=== PATIENT | male | born 1970 ===

== ENCOUNTER 2017-08-05 23:47 | Emergency (ER) | payer SELFPAY ==
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
[2017-08-06 02:11] LABS: HEMOGLOBIN 15.3 g/dL (14.0-18.0); MEAN CORPUSCULAR HEMOGLOBIN 29.4 pg (25.0-35.0); MEAN CORPUSCULAR HGB CONC 34.2 g/dl (31.0-37.0); MEAN PLATELET VOLUME 10.7 fl (7.0-11.0); RBC 5.21 10^6/uL (3.5-6.1); RED CELL DISTRIBUTION WIDTH 13.2 % (11.5-14.5); URINE BILIRUBIN NEGATIVE (NEGATIVE); URINE BLOOD NEGATIVE (NEGATIVE); URINE GLUCOSE (UA) NEGATIVE (NEGATIVE); URINE LEUKOCYTE ESTERASE NEGATIVE Leu/uL (NEGATIVE); URINE NITRATE NEGATIVE (NEGATIVE); URINE PROTEIN NEGATIVE mg/dL (<30 mg/dL); URINE UROBILINOGEN 0.2 E.U./dL (<1 E.U./dL); WHITE BLOOD COUNT 7.2 10^3/ul (4.5-11.0)
[2017-08-06 02:21] LABS: ALB/GLOB RATIO 1.4 (1.1-1.8); ALBUMIN 4.5 g/dL (3.0-4.8); ALT/SGPT 33 U/L (7-56); AST/SGOT 32 U/L (17-59); BLOOD UREA NITROGEN 16 mg/dL (7-21); CALCIUM 9.8 mg/dL (8.4-10.5); GFR AFRICAN-AMERICAN > 60; GFR NON-AFRICAN AMERICAN > 60; URINE APPEARANCE CLEAR (CLEAR); URINE COLOR YELLOW (YELLOW)
[2017-08-06 02:31] LABS: BARBITURATES, UR NEGATIVE (NEGATIVE); BENZODIAZEPINES, UR NEGATIVE (NEGATIVE); OPIATES, UR NEGATIVE (NEGATIVE); PHENCYCLIDINE, UR NEGATIVE (NEGATIVE)
[2017-08-06 02:33] VITALS: RESP 16
[2017-08-06 07:39] VITALS: BP 106/63; PULSE 98; TEMP 97.9; O2SAT 97
--- NOTE | 2017-08-06 09:35 | RAD ---
HISTORY: medical clearance COMPARISON: No prior. FINDINGS: LUNGS: The lungs are well inflated and clear. PLEURA: No significant pleural effusion identified, no pneumothorax apparent. CARDIOVASCULAR: Normal. OSSEOUS STRUCTURES: No significant abnormalities. VISUALIZED UPPER ABDOMEN: Normal. OTHER FINDINGS: None. IMPRESSION: No active pulmonary disease.
--- NOTE | 2017-08-06 09:41 | CARD ---
APPROVED REPORT EKG Measurement Heart [id number] <Conclusion> Sinus tachycardia Possible Left atrial enlargement T wave abnormality, consider anterolateral ischemia
== END 2017-08-06 08:40 | disposition short-term general hospital (02) ==
LOC: ED 23:47
DX: F20.9 Schizophrenia, unspecified (principal)
CPT/HCPCS: 71045; 80053; 81003; 85027; 90791; 93005; 99283; G0480

== ENCOUNTER 2017-08-29 20:28 | Emergency (ER) | payer SELFPAY ==
[2017-08-29 20:31] VITALS: BMI 33.4
[2017-08-29 20:43] VITALS: TEMP 97.9
--- NOTE | 2017-08-29 21:16 | ED PDOC ---
Arrival/HPI - General Chief Complaint: Anxiety Time Seen by Provider: 08/29/17 20:29 Historian: Patient - History of Present Illness Narrative History of Present Illness (Text): 08/29/17 21:15 Salvador Menchaca is a 47 year old male, whose past medical history includes schizophrenia, who presents to the Emergency department complaining of anxiety. Patient states he has been feeling anxious tonight and notes he has been experiencing visual hallucinations. Patient denies any suicidal ideation and homicidal ideation. Patient also complaining of a frontal headache. Patient denies any fever, chills, chest pain, shortness of breath, nausea, vomiting, diarrhea, urinary symptoms, back pain, neck pain, dizziness, or any other complaints. Symptom Onset: Gradual Symptom Course: Unchanged Activities at Onset: Light Context: Home Past Medical History - Provider Review Nursing Documentation Reviewed: Yes - Infectious Disease Hx of Infectious Diseases: None - Tetanus Immunization Tetanus Immunization: Unknown - Cardiac Hx Cardiac Disorders: No Hx Hypertension: No - Pulmonary Hx Respiratory Disorders: No Hx Tuberculosis: No - Neurological Hx Neurological Disorder: No Hx Seizures: No - HEENT Hx HEENT Disorder: No - Renal Hx Renal Disorder: No - Endocrine/Metabolic Hx Endocrine Disorders: No - Hematological/Oncological Hx Blood Disorders: No - Integumentary Hx Dermatological Disorder: No - Musculoskeletal/Rheumatological Hx Musculoskeletal Disorders: No - Gastrointestinal Hx Gastrointestinal Disorders: No - Genitourinary/Gynecological Hx Genitourinary Disorders: No Hx Sexually Transmitted Diseases: No - Psychiatric Hx Psychophysiologic Disorder: Yes Hx Anxiety: Yes Hx Schizophrenia: Yes Hx Substance Use: No - Surgical History Hx Orthopedic Surgery: Yes (left ankle) Family/Social History - Physician Review Nursing Documentation Reviewed: Yes Family/Social History: Unknown Family HX Smoking Status: Never Smoked Hx Alcohol Use: No Hx Substance Use: No Allergies/Home Meds Allergies/Adverse Reactions: Allergies No Known Allergies Allergy (Verified 08/06/17 09:30) Home Medications: Home Meds Medication Instructions Recorded Confirmed Unobtainable 08/29/17 08/29/17 Review of Systems - Physician Review All systems were reviewed & negative as marked: Yes - Review of Systems Constitutional: Normal. absent: Fevers Eyes: Normal ENT: Normal Respiratory: Normal. absent: SOB, Cough Cardiovascular: Normal. absent: Chest Pain Gastrointestinal: Normal. absent: Abdominal Pain, Diarrhea, Nausea, Vomiting Genitourinary Male: Normal. absent: Dysuria, Frequency, Hematuria, Urinary Output Changes Musculoskeletal: Normal. absent: Back Pain, Neck Pain Skin: Normal. absent: Rash Neurological: Headache. absent: Dizziness Endocrine: Normal Hemo/Lymphatic: Normal Psychiatric: Anxiety, Other (+visual hallucinations) Physical Exam Vital Signs Reviewed: Yes Vital Signs Temp Pulse Resp BP Pulse Ox 08/30/17 01:08 63 16 100/63 95 08/29/17 23:34 71 16 99/61 L 97 08/29/17 20:36 97.9 F 104 H 22 128/82 97 Temperature: Afebrile Blood Pressure: Normal Pulse: Regular Respiratory Rate: Normal Appearance: Positive for: Well-Appearing, Non-Toxic, Comfortable Pain Distress: None Mental Status: Positive for: Alert and Oriented X 3 - Systems Exam Head: Present: Atraumatic, Normocephalic Pupils: Present: PERRL Extroacular Muscles: Present: EOMI Conjunctiva: Present: Normal Mouth: Present: Moist Mucous Membranes Neck: Present: Normal Range of Motion Respiratory/Chest: Present: Clear to Auscultation, Good Air Exchange. No: Respiratory Distress, Accessory Muscle Use Cardiovascular: Present: Regular Rate and Rhythm, Normal S1, S2. No: Murmurs Abdomen: Present: Normal Bowel Sounds. No: Tenderness, Distention, Peritoneal Signs Back: Present: Normal Inspection Upper Extremity: Present: Normal Inspection. No: Cyanosis, Edema Lower Extremity: Present: Normal Inspection. No: Edema Neurological: Present: GCS=15, CN II-XII Intact, Speech Normal Skin: Present: Warm, Dry, Normal Color. No: Rashes Psychiatric: Present: Alert, Oriented x 3, Normal Insight, Normal Concentration Medical Decision Making ED Course and Treatment: 08/29/17 21:15 Impression: 47 year old male complaining of anxiety and visual hallucinations. Plan: -- CT Head w/o contrast -- EKG -- Chest X-ray -- Labs, alcohol level -- Urinalysis, urine drug screen -- Reassess and disposition Prior Visits: Notes and results from previous visits were reviewed. On 08/06/2017, pt was seen in the Emergency department for anxiety and trasnferred to [facility] ER for psychriatic admission. Progress Notes: 08/29/17 21:54 Reviewed EKG, NSR at 80 bpm. Non-specific T wave changes. 08/29/17 23:58 Reviewed radiology, Chest X-ray shows no acute processes. CT Head shows: Brain: Ventricles are normal in size and configuration. There is no midline shift. There are no intraaxial or extra-axial mass lesions or areas of hemorrhage. There are faint calcifications in the basal ganglia bilaterally. There are no abnormal fluid collections. Valadez-white differentiation is maintained. Bones/joints: Bones: Cranial vault is intact. Soft tissues: unremarkable Sinuses: There is no acute sinusitis. Ears and mastoids: Middle ears are unremarkable. Mastoids are incompletely pneumatized. Orbits: Orbital contents are unremarkable. IMPRESSION: No acute intracranial abnormality 08/30/17 01:30 Pt medically cleared for PES evaluation. 08/30/17 02:51 Pt seen and evaluated by PES melissa Bailey, who discussed case with psychiatrist coordinator of rehabilitation services. Pt psychiatrically cleared for d/c home with outpt f/u. - Lab Interpretations Lab Results: 08/29/17 21:58 08/29/17 21:58 Lab Results 08/29/17 21:58: Urine Opiates Screen Negative, Urine Methadone Screen Negative, Ur Barbiturates Screen Negative, Ur Phencyclidine Scrn Negative, Ur Amphetamines Screen Negative, U Benzodiazepines Scrn Negative, U Oth Cocaine Metabols Negative, U Cannabinoids Screen Negative 08/29/17 21:58: WBC 7.3, RBC 5.00, Hgb 14.7, Hct 43.5, MCV 87.0, MCH 29.4, MCHC 33.8, RDW 13.7, Plt Count 270, MPV 10.6 08/29/17 21:58: Alcohol, Quantitative < 10 08/29/17 21:58: Sodium 142, Potassium 4.1, Chloride 106, Carbon Dioxide 27, Anion Gap 13, BUN 18, Creatinine 0.9, Est GFR ( Amer) > 60, Est GFR (Non- Af Amer) > 60, Random Glucose 123 H, Calcium 9.5, Total Bilirubin 0.3, AST 39, ALT 65 H, Alkaline Phosphatase 88, Total Protein 7.1, Albumin 3.9, Globulin 3.1 , Albumin/Globulin Ratio 1.3 08/29/17 21:45: Urine Color Yellow, Urine Appearance Clear, Urine pH 7.0, Ur Specific [place] 1.010, Urine Protein Trace H, Urine Glucose (UA) Negative, Urine Ketones Negative, Urine Blood Negative, Urine Nitrate Negative, Urine Bilirubin Negative, Urine Urobilinogen 0.2, Ur Leukocyte Esterase Negative, Urine RBC 0 - 2, Urine WBC 0 - 2, Ur Epithelial Cells 0 - 2 I have reviewed the lab results: Yes - RAD Interpretation Radiology Orders: 08/29/17 21:21 HEAD W/O CONTRAST [CT] Stat 08/29/17 21:28 CHEST PORTABLE [RAD] Stat Group Insurance Specialist: ED Physician, Radiologist - EKG Interpretation Interpreted by ED Physician: Yes Type: 12 lead EKG - Scribe Statement The provider has reviewed the documentation as recorded by the Francoise Hartman Provider Scribe Attestation: All medical record entries made by the Scribe were at my direction and personally dictated by me. I have reviewed the chart and agree that the record accurately reflects my personal performance of the history, physical exam, medical decision making, and the department course for this patient. I have also personally directed, reviewed, and agree with the discharge instructions and disposition. Disposition/Present on Arrival - Present on Arrival Any Indicators Present on Arrival: No History of DVT/PE: No History of Uncontrolled Diabetes: No Urinary Catheter: No History of Decub. Ulcer: No History Surgical Site Infection Following: None - Disposition Have Diagnosis and Disposition been Completed?: Yes Diagnosis: Schizophrenia, Anxiety Disposition: HOME/ ROUTINE Disposition Time: 02:58 Patient Plan: Discharge Condition: GOOD Discharge Instructions (ExitCare): Anxiety, Adult (DC), Schizophrenia (DC) Additional Instructions: Follow up outpatient [facility] Forms: [employer] (Malay)
[2017-08-29 22:10] LABS: HEMOGLOBIN 14.7 g/dL (14.0-18.0); MEAN CORPUSCULAR HEMOGLOBIN 29.4 pg (25.0-35.0); MEAN CORPUSCULAR HGB CONC 33.8 g/dl (31.0-37.0); MEAN PLATELET VOLUME 10.6 fl (7.0-11.0); RED CELL DISTRIBUTION WIDTH 13.7 % (11.5-14.5); WHITE BLOOD COUNT 7.3 10^3/ul (4.5-11.0)
[2017-08-29 22:21] LABS: ALB/GLOB RATIO 1.3 (1.1-1.8); ALBUMIN 3.9 g/dL (3.0-4.8); ALT/SGPT 65 U/L (7-56); AST/SGOT 39 U/L (17-59); BLOOD UREA NITROGEN 18 mg/dL (7-21); CALCIUM 9.5 mg/dL (8.4-10.5); GFR AFRICAN-AMERICAN > 60; GFR NON-AFRICAN AMERICAN > 60
[2017-08-29 22:23] LABS: BENZODIAZEPINES, UR NEGATIVE (NEGATIVE)
[2017-08-29 22:36] LABS: BARBITURATES, UR NEGATIVE (NEGATIVE); OPIATES, UR NEGATIVE (NEGATIVE); PHENCYCLIDINE, UR NEGATIVE (NEGATIVE)
--- NOTE | 2017-08-29 23:14 | CT ---
EXAM: CT Head Without Intravenous Contrast EXAM DATE/TIME: 08/29/2017 9:21 PM CLINICAL HISTORY: 47 years old, male; Pain; Headache; Headache not specified TECHNIQUE: Axial computed tomography images of the head/brain without intravenous contrast. All CT scans at this facility use one or more dose reduction techniques, viz.: automated exposure control; ma/kV adjustment per patient size (including targeted exams where dose is matched to indication; i.e. head); or iterative reconstruction technique. Coronal and sagittal reformatted images were created and reviewed. COMPARISON: No relevant prior studies available. FINDINGS: Brain: Ventricles are normal in size and configuration. There is no midline shift. There are no intra-axial or extra-axial mass lesions or areas of hemorrhage. There are faint calcifications in the basal ganglia bilaterally. There are no abnormal fluid collections. Valadez-white differentiation is maintained. Bones/joints: Bones: Cranial vault is intact. Soft tissues: unremarkable Sinuses: There is no acute sinusitis. Ears and mastoids: Middle ears are unremarkable. Mastoids are incompletely pneumatized. Orbits: Orbital contents are unremarkable. IMPRESSION: No acute intracranial abnormality
[2017-08-30 00:05] LABS: URINE APPEARANCE CLEAR (CLEAR); URINE BILIRUBIN NEGATIVE (NEGATIVE); URINE BLOOD NEGATIVE (NEGATIVE); URINE COLOR YELLOW (YELLOW); URINE GLUCOSE (UA) NEGATIVE (NEGATIVE); URINE LEUKOCYTE ESTERASE NEGATIVE Leu/uL (NEGATIVE); URINE PROTEIN TRACE mg/dL (<30 mg/dL); URINE UROBILINOGEN 0.2 E.U./dL (<1 E.U./dL)
[2017-08-30 00:17] LABS: URINE EPITHELIAL CELLS 0 - 2 /hpf (0-5); URINE RBC 0 - 2 /hpf (0-2); URINE WBC 0 - 2 /hpf (0-6)
[2017-08-30 03:09] VITALS: BP 105/71; PULSE 82; RESP 18; O2SAT 96
--- NOTE | 2017-08-30 09:22 | RAD ---
HISTORY: medical clearance COMPARISON: 08/06/2017. FINDINGS: LUNGS: The lungs are well inflated and clear. PLEURA: No significant pleural effusion identified, no pneumothorax apparent. CARDIOVASCULAR: Normal. OSSEOUS STRUCTURES: No significant abnormalities. VISUALIZED UPPER ABDOMEN: Normal. OTHER FINDINGS: None. IMPRESSION: No active pulmonary disease.
--- NOTE | 2017-08-30 17:55 | CARD ---
APPROVED REPORT EKG Measurement Heart [id number] [place] 132P50 [id number] <Conclusion> Poor data quality, interpretation may be adversely affected Normal sinus rhythm Nonspecific T wave abnormality Abnormal ECG
== END 2017-08-30 03:14 | disposition home or self-care (01) ==
LOC: ED 20:28
DX: F20.9 Schizophrenia, unspecified (principal); F41.9 Anxiety disorder, unspecified
CPT/HCPCS: 70450; 71045; 80053; 81001; 85027; 90791; 93005; 99284; G0480

== ENCOUNTER 2017-09-01 16:38 | Emergency (ER) | payer SELFPAY ==
[2017-09-01 16:39] VITALS: BMI 33.4
[2017-09-01 16:54] VITALS: RESP 18
[2017-09-01 17:56] LABS: URINE BILIRUBIN NEGATIVE (NEGATIVE); URINE BLOOD NEGATIVE (NEGATIVE); URINE GLUCOSE (UA) NEGATIVE (NEGATIVE); URINE LEUKOCYTE ESTERASE NEGATIVE Leu/uL (NEGATIVE); URINE PROTEIN NEGATIVE mg/dL (<30 mg/dL); URINE UROBILINOGEN 0.2 E.U./dL (<1 E.U./dL)
[2017-09-01 17:57] LABS: URINE APPEARANCE CLEAR (CLEAR); URINE COLOR YELLOW (YELLOW)
[2017-09-01 17:58] LABS: BASO # 0.02 K/mm3 (0.0-2.0); BASO % 0.2 % (0.0-3.0); EOS # 0.1 (0.0-0.7); EOS % 0.8 % (1.5-5.0); GRAN # 6.63 (1.4-6.5); GRAN % 71.3 % (50.0-68.0); HEMOGLOBIN 15.1 g/dL (14.0-18.0); LYMPH # 1.9 (1.2-3.4); LYMPH % 20.5 % (22.0-35.0); MEAN CELL VOLUME 87.7 fl (80.0-105.0); MEAN CORPUSCULAR HEMOGLOBIN 29.1 pg (25.0-35.0); MEAN CORPUSCULAR HGB CONC 33.2 g/dl (31.0-37.0); MONO # 0.7 (0.1-0.6); MONO % 7.2 % (1.0-6.0); RBC 5.19 10^6/uL (3.5-6.1); RED CELL DISTRIBUTION WIDTH 13.6 % (11.5-14.5); WHITE BLOOD COUNT 9.3 10^3/ul (4.5-11.0)
[2017-09-01 18:00] LABS: ACETAMINOPHEN < 10.0 ug/ml (10.0-20.0); SALICYLATE < 1 mg/dL (2.0-20.0)
[2017-09-01 18:01] LABS: ALB/GLOB RATIO 1.3 (1.1-1.8); ALBUMIN 4.4 g/dL (3.0-4.8); ALT/SGPT 62 U/L (7-56); AST/SGOT 33 U/L (17-59); BLOOD UREA NITROGEN 18 mg/dL (7-21); GFR AFRICAN-AMERICAN > 60; GFR NON-AFRICAN AMERICAN > 60
--- NOTE | 2017-09-01 18:09 | ED PDOC ---
Arrival/HPI - General Chief Complaint: Anxiety Time Seen by Provider: 09/01/17 16:57 Historian: Patient - History of Present Illness Narrative History of Present Illness (Text): 09/01/17 18:08 A 47 year old male, whose past medical history includes schizophrenia, presents to the emergency department complaining of feeling anxious today. Patient notes a mild frontal headache but denies any fever, chills, nausea, vomiting, abdominal pain, chest pain, shortness of breath, dizziness, visual changes or any other complaints. Time/Duration: Other (today) Symptom Course: Unchanged Context: Home Past Medical History - Provider Review Nursing Documentation Reviewed: Yes - Infectious Disease Hx of Infectious Diseases: None - Tetanus Immunization Tetanus Immunization: Unknown - Cardiac Hx Cardiac Disorders: No - Pulmonary Hx Respiratory Disorders: No - Neurological Hx Neurological Disorder: No - HEENT Hx HEENT Disorder: No - Renal Hx Renal Disorder: No - Endocrine/Metabolic Hx Endocrine Disorders: No - Hematological/Oncological Hx Blood Disorders: No - Integumentary Hx Dermatological Disorder: No - Musculoskeletal/Rheumatological Hx Musculoskeletal Disorders: No - Gastrointestinal Hx Gastrointestinal Disorders: No - Genitourinary/Gynecological Hx Genitourinary Disorders: No Hx Sexually Transmitted Diseases: No - Psychiatric Hx Psychophysiologic Disorder: Yes Hx Anxiety: Yes Hx Schizophrenia: Yes Hx Substance Use: No - Surgical History Hx Orthopedic Surgery: Yes (left ankle) Family/Social History - Physician Review Nursing Documentation Reviewed: Yes Family/Social History: No Known Family HX Smoking Status: Never Smoked Hx Alcohol Use: No Hx Substance Use: No Allergies/Home Meds Allergies/Adverse Reactions: Allergies No Known Allergies Allergy (Verified 09/01/17 16:47) Home Medications: Home Meds Medication Instructions Recorded Confirmed Unobtainable 08/29/17 09/01/17 Review of Systems - Physician Review All systems were reviewed & negative as marked: Yes - Review of Systems Constitutional: absent: Fevers, Night Sweats Eyes: absent: Vision Changes Respiratory: absent: SOB Cardiovascular: absent: Chest Pain Gastrointestinal: absent: Abdominal Pain, Nausea, Vomiting Neurological: Headache. absent: Dizziness Psychiatric: Anxiety Physical Exam - Physical Exam Narrative Physical Exam (Text): Constitutional: No acute distress. Head: Normocephalic. Atraumatic. Eyes: PERRL. ENT: Moist mucous membranes. Neck: Supple. Cardiovascular: Regular rate. Chest: No tenderness. Respiratory: Clear to auscultation bilaterally. GI: Soft. Nontender. Nondistended. Back: No CVA tenderness. Musculoskeletal: No tenderness or swelling of extremities. Skin: No rash. Neurologic: Alert, no focal deficit. Vital Signs Reviewed: Yes Vital Signs Temp Pulse Resp BP Pulse Ox 09/01/17 16:54 98.2 F 89 18 129/91 H 98 Temperature: Afebrile Blood Pressure: Hypertensive Pulse: Regular Respiratory Rate: Normal Appearance: Positive for: Well-Appearing, Non-Toxic, Comfortable Pain Distress: None Mental Status: Positive for: Alert and Oriented X 3 Medical Decision Making ED Course and Treatment: EKG shows NSR at [address]-segment elevations. Interpreted by me. There are no focal deficits unchanged from prior visit on 08/29/17, will not repeat head CT. Report Date : 09/01/2017 18:21:55 Procedure: Chest xray Dictator : Humberto Zepeda MD IMPRESSION: No active disease. No significant interval change compared to the prior examination(s). 09/01/17 19:47 Evaluated and cleared by PES. Has appointment scheduled. - Lab Interpretations Lab Results: 09/01/17 17:40 09/01/17 17:05 Lab Results 09/01/17 17:40: WBC 9.3 D, RBC 5.19, Hgb 15.1, Hct 45.5, MCV 87.7, MCH 29.1, MCHC 33.2, RDW 13.6, Plt Count 279, MPV 11.0, Gran % 71.3 H, Lymph % (Auto) 20.5 L, [place] % (Auto) 7.2 H, Eos % (Auto) 0.8 L, Baso % (Auto) 0.2, Gran # 6.63 H, Lymph # (Auto) 1.9, [place] # (Auto) 0.7 H, Eos # (Auto) 0.1, Baso # (Auto) 0.02 09/01/17 17:05: Alcohol, Quantitative < 10 09/01/17 17:05: Salicylates < 1 L, Acetaminophen < 10.0 L 09/01/17 17:05: Urine Opiates Screen Negative, Urine Methadone Screen Negative, Ur Barbiturates Screen Negative, Ur Phencyclidine Scrn Negative, Ur Amphetamines Screen Negative, U Benzodiazepines Scrn Negative, U Oth Cocaine Metabols Negative, U Cannabinoids Screen Negative 09/01/17 17:05: Sodium 144, Potassium 4.3, Chloride 102, Carbon Dioxide 32, Anion Gap 14, BUN 18, Creatinine 1.0, Est GFR ( Amer) > 60, Est GFR (Non- Af Amer) > 60, Random Glucose 94, Calcium 10.0, Total Bilirubin 0.3, AST 33, ALT 62 H, Alkaline Phosphatase 102, Total Protein 7.7, Albumin 4.4, Globulin 3.3 , Albumin/Globulin Ratio 1.3 09/01/17 17:05: Urine Color Yellow, Urine Appearance Clear, Urine pH 6.0, Ur Specific [place] 1.010, Urine Protein Negative, Urine Glucose (UA) Negative, Urine Ketones Negative, Urine Blood Negative, Urine Nitrate Negative, Urine Bilirubin Negative, Urine Urobilinogen 0.2, Ur Leukocyte Esterase Negative - RAD Interpretation Radiology Orders: 09/01/17 17:37 CHEST PORTABLE [RAD] Stat - Medication Orders Current Medication Orders: Discontinued Medications Acetaminophen (Tylenol 325mg Tab) 650 mg PO STAT STA Stop: 09/01/17 17:45 Last Admin: 09/01/17 18:41 Dose: 650 mg MAR Pain/Vitals Document 09/01/17 18:41 EQ (Rec: 09/01/17 18:41 EQ [id number]) Pain Reassessment Is This A Pain ReAssessment? No Sleep Is patient sleeping during reassessment? No Presence of Pain Presence of Pain Yes Pain Scale Used Pain Scale Used Numeric - Scribe Statement The provider has reviewed the documentation as recorded by the Francoise Feliciano Provider Scribe Attestation: All medical record entries made by the Scribe were at my direction and personally dictated by me. I have reviewed the chart and agree that the record accurately reflects my personal performance of the history, physical exam, medical decision making, and the department course for this patient. I have also personally directed, reviewed, and agree with the discharge instructions and disposition. Disposition/Present on Arrival - Present on Arrival Any Indicators Present on Arrival: No History of DVT/PE: No History of Uncontrolled Diabetes: No Urinary Catheter: No History of Decub. Ulcer: No History Surgical Site Infection Following: None - Disposition Have Diagnosis and Disposition been Completed?: Yes Diagnosis: Schizophrenia Disposition: HOME/ ROUTINE Disposition Time: 18:08 Patient Plan: Discharge Condition: STABLE Discharge Instructions (ExitCare): Schizophrenia (DC) Referrals: PCP,NO [Primary Care Provider] - Follow up with primary Forms: [employer] (Chadian)
[2017-09-01 18:12] LABS: BENZODIAZEPINES, UR NEGATIVE (NEGATIVE)
--- NOTE | 2017-09-01 18:23 | RAD ---
HISTORY: anxiety COMPARISON: 08/29/2017 FINDINGS: LUNGS: No active pulmonary disease. PLEURA: No significant pleural effusion identified, no pneumothorax apparent. CARDIOVASCULAR: No radiographic findings to suggest acute or significant cardiovascular disease. OSSEOUS STRUCTURES: No significant abnormalities. VISUALIZED UPPER ABDOMEN: Normal. OTHER FINDINGS: None. IMPRESSION: No active disease. No significant interval change compared to the prior examination(s).
[2017-09-01 18:58] LABS: BARBITURATES, UR NEGATIVE (NEGATIVE); OPIATES, UR NEGATIVE (NEGATIVE); PHENCYCLIDINE, UR NEGATIVE (NEGATIVE)
[2017-09-01 19:49] VITALS: BP 123/78; PULSE 88; TEMP 97.9; O2SAT 99
--- NOTE | 2017-09-02 23:08 | CARD ---
APPROVED REPORT EKG Measurement Heart [id number] <Conclusion> Normal sinus rhythm Nonspecific T wave abnormality Abnormal ECG
== END 2017-09-01 20:00 | disposition home or self-care (01) ==
LOC: ED 16:38
DX: F20.9 Schizophrenia, unspecified (principal)
CPT/HCPCS: 71045; 80053; 81003; 85025; 90791; 99283; G0480

== ENCOUNTER 2017-10-19 18:25 | Emergency (ER) | payer MEDICAID ==
[2017-10-19 18:38] VITALS: BMI 30.1
--- NOTE | 2017-10-19 19:47 | ED PDOC ---
Arrival/HPI - General Chief Complaint: Lower Extremity Problem/Injury Time Seen by Provider: 10/19/17 19:30 Historian: Patient, Spouse EM Caveat: Language Barrier - History of Present Illness Narrative History of Present Illness (Text): 10/19/17 20:59 10/19/17 19:44 Pt is a 47 yr old male with a PMH of schizoaffective d/o who presents with left knee pain and swelling x 3 days after playing basketball. States he began to notice an increase in pain the next day that continue to worsen over time. States he has some difficulty putting weight into the leg but is still able to flex and extend the knee. Denies, trauma, fever, sob, cp, nausea, vomiting loss of sensation, or muscle strength, or travel outside of the [facility]. Time/Duration: < week Symptom Onset: Sudden Symptom Course: Unchanged Quality: Aching, Pressure Severity Level: 6 Activities at Onset: Light Context: Exertion Past Medical History - Provider Review Nursing Documentation Reviewed: Yes - Travel History Have you recently traveled outside [place] w/in the past 3 mons?: No - Infectious Disease Hx of Infectious Diseases: None - Tetanus Immunization Tetanus Immunization: Unknown - Cardiac Hx Cardiac Disorders: No - Pulmonary Hx Respiratory Disorders: No - Neurological Hx Neurological Disorder: No - HEENT Hx HEENT Disorder: No - Renal Hx Renal Disorder: No - Endocrine/Metabolic Hx Endocrine Disorders: No - Hematological/Oncological Hx Blood Disorders: No - Integumentary Hx Dermatological Disorder: No - Musculoskeletal/Rheumatological Hx Musculoskeletal Disorders: No - Gastrointestinal Hx Gastrointestinal Disorders: No - Genitourinary/Gynecological Hx Genitourinary Disorders: No Hx Sexually Transmitted Diseases: No - Psychiatric Hx Psychophysiologic Disorder: Yes Hx Anxiety: Yes Hx Schizophrenia: Yes Hx Substance Use: No - Surgical History Hx Orthopedic Surgery: Yes (left ankle) - Anesthesia Hx Anesthesia: No Hx Anesthesia Reactions: No Hx Malignant Hyperthermia: No Family/Social History - Physician Review Nursing Documentation Reviewed: Yes Family/Social History: Unknown Family HX Smoking Status: Never Smoked Hx Alcohol Use: No Hx Substance Use: No Allergies/Home Meds Allergies/Adverse Reactions: Allergies No Known Allergies Allergy (Verified 09/01/17 16:47) Review of Systems - Physician Review All systems were reviewed & negative as marked: Yes - Review of Systems Systems not reviewed;Unavailable: Language Barrier (portuguese) Constitutional: Normal Eyes: Normal ENT: Normal Respiratory: Normal Cardiovascular: Normal Gastrointestinal: Normal Genitourinary Male: Normal Musculoskeletal: Normal, Joint Swelling (left knee) Skin: Normal Neurological: Normal, Gait Changes (antalgic) Endocrine: Normal Hemo/Lymphatic: Normal Psychiatric: Normal Physical Exam Vital Signs Reviewed: Yes Vital Signs Temp Pulse Resp BP Pulse Ox 10/19/17 21:35 98.1 F 76 17 120/82 100 10/19/17 21:00 72 17 119/64 98 10/19/17 18:32 98.5 F 76 16 128/80 97 Temperature: Afebrile Blood Pressure: Normal Pulse: Regular Respiratory Rate: Normal Appearance: Positive for: Well-Appearing, Non-Toxic, Comfortable Pain Distress: None Mental Status: Positive for: Alert and Oriented X 3 - Systems Exam Head: Present: Atraumatic, Normocephalic Pupils: Present: PERRL Extroacular Muscles: Present: EOMI Conjunctiva: Present: Normal Mouth: Present: Moist Mucous Membranes Neck: Present: Normal Range of Motion Respiratory/Chest: Present: Clear to Auscultation, Good Air Exchange. No: Respiratory Distress, Accessory Muscle Use Cardiovascular: Present: Regular Rate and Rhythm, Normal S1, S2. No: Murmurs Abdomen: No: Tenderness, Distention, Peritoneal Signs Back: Present: Normal Inspection Upper Extremity: Present: Normal Inspection. No: Cyanosis, Edema Lower Extremity: Present: Normal Inspection, NORMAL PULSES, Tenderness (left knee), Swelling (left knee effusion; extracapsular), Temperature Abnormalties ( warmth around the left knee), Neurovascularly Intact. No: Edema, CALF TENDERNESS, Cyanosis, Normal ROM, Tay's Sign, Erythema, Deformity Neurological: Present: GCS=15, CN II-XII Intact, Speech Normal, Motor Func Grossly Intact, Normal Sensory Function Skin: Present: Warm, Dry, Normal Color. No: Rashes Psychiatric: Present: Alert, Oriented x 3, Normal Insight, Normal Concentration Medical Decision Making ED Course and Treatment: 10/19/17 19:47 Impression Pt is a 47 yr old male with a PMH of schizoaffective d/o who presents with left knee pain and swelling x 3 days after playing basketball. On exam, pt can actively and passively flex and extend the left knee with significant edema and warmth; (+) [place] for meniscus of L knee Plan Assess and dispo 10/19/17 19:53 Progress note Advised pt to f/u w orthopedist for MRI and PT 10/19/17 21:00 pt complaining of left knee pain; Toradol 30 mg IM stat along w ice pack MADAY wrap and crutches and dispo home with ibuprofen and referral to orthopedist 10/19/17 21:28 - Lab Interpretations Lab Results: 10/19/17 20:22 10/19/17 20:22 Lab Results 10/19/17 20:22: Sodium 144, Potassium 4.0, Chloride 104, Carbon Dioxide 30, Anion Gap 14, BUN 13, Creatinine 1.0, Est GFR ( Amer) > 60, Est GFR (Non- Af Amer) > 60, Random Glucose 105, Calcium 9.0, Total Bilirubin 0.1 L, AST 35, ALT 40, Alkaline Phosphatase 85, Total Protein 6.9, Albumin 4.0, Globulin 2.9, Albumin/Globulin Ratio 1.4 10/19/17 20:22: WBC 8.1, RBC 4.76, Hgb 13.7 L, Hct 41.2 L, MCV 86.6, MCH 28.8, MCHC 33.3, RDW 14.0, Plt Count 313, MPV 10.3, Gran % 60.8, Lymph % (Auto) 29.7, [place] % (Auto) 7.0 H, Eos % (Auto) 2.3, Baso % (Auto) 0.2, Gran # 4.91, Lymph # ( Auto) 2.4, [place] # (Auto) 0.6, Eos # (Auto) 0.2, Baso # (Auto) 0.02 I have reviewed the lab results: Yes Interpretation: All labs normal - Medication Orders Current Medication Orders: Discontinued Medications Ketorolac Tromethamine (Toradol) 30 mg IM STAT STA Stop: 10/19/17 20:53 Last Admin: 10/19/17 21:18 Dose: 30 mg MAR Pain Assessment Document 10/19/17 21:18 IT (Rec: 10/19/17 21:18 IT [id number]) Pain Reassessment Is this a pain reassessment? No Sleep Is patient sleeping during reassessment? No Presence of Pain Presence of Pain Yes Pain Scale Used Pain Scale Used Numeric Location Left, Right or Bilateral Left Pain Location Body Site Knee Description Intensity of Pain at present 4 IM Administration Charges Document 10/19/17 21:18 IT (Rec: 10/19/17 21:18 IT [id number]) Injection Site MAR Injection Site Left Deltoid Charges for Administration # of IM Administrations 1 Disposition/Present on Arrival - Present on Arrival Any Indicators Present on Arrival: Yes History of DVT/PE: No History of Uncontrolled Diabetes: No Urinary Catheter: No History of Decub. Ulcer: No History Surgical Site Infection Following: None - Disposition Have Diagnosis and Disposition been Completed?: Yes Diagnosis: Knee pain, left, Meniscal injury Disposition: HOME/ ROUTINE Disposition Time: 21:04 Patient Plan: Discharge Condition: GOOD Discharge Instructions (ExitCare): Knee Sprain (DC) Additional Instructions: Salvador, thank you for letting us take care of you today. Your provider was ANTOLIN Barreto. You were treated for Left knee meniscal injury. The emergency medical care you received today was directed at your acute symptoms. If you were prescribed any medication, please fill it and take as directed. It may take several days for your symptoms to resolve. Return to the Emergency Department if your symptoms worsen, do not improve, or if you have any other problems. Please follow up with your Primary Doctor or Orthopedist to have MRI and Physical Therapy Please contact your doctor or call one of the physicians/clinics you have been referred to that are listed on the Patient Visit Information form that is included in your discharge packet. Bring any paperwork you were given at discharge with you along with any medications you are taking to your follow up visit. Our treatment cannot replace ongoing medical care by a primary care provider (PCP) outside of the emergency department. Thank you for allowing the [facility] team to be part of your care today. I Prescriptions: Ibuprofen [Motrin Tab] 600 mg PO Q6 PRN 5 Days #20 tab PRN Reason: pain/fever Referrals: PCP,NO [Primary Care Provider] - Follow up with primary Efrem Christiansen DO [Staff Provider] - Follow up with primary Forms: [employer] (Occitan), WORK NOTE
[2017-10-19 20:34] LABS: BASO # 0.02 K/mm3 (0.0-2.0); BASO % 0.2 % (0.0-3.0); EOS # 0.2 (0.0-0.7); EOS % 2.3 % (1.5-5.0); GRAN # 4.91 (1.4-6.5); GRAN % 60.8 % (50.0-68.0); HEMOGLOBIN 13.7 g/dL (14.0-18.0); LYMPH # 2.4 (1.2-3.4); LYMPH % 29.7 % (22.0-35.0); MEAN CELL VOLUME 86.6 fl (80.0-105.0); MEAN CORPUSCULAR HEMOGLOBIN 28.8 pg (25.0-35.0); MEAN CORPUSCULAR HGB CONC 33.3 g/dl (31.0-37.0); MEAN PLATELET VOLUME 10.3 fl (7.0-11.0); MONO # 0.6 (0.1-0.6); RBC 4.76 10^6/uL (3.5-6.1); WHITE BLOOD COUNT 8.1 10^3/ul (4.5-11.0)
[2017-10-19 20:43] LABS: ALB/GLOB RATIO 1.4 (1.1-1.8); ALT/SGPT 40 U/L (7-56); AST/SGOT 35 U/L (17-59); BLOOD UREA NITROGEN 13 mg/dL (7-21); GFR AFRICAN-AMERICAN > 60; GFR NON-AFRICAN AMERICAN > 60
[2017-10-19 21:02] VITALS: RESP 17
[2017-10-19 21:37] VITALS: BP 120/82; PULSE 76; TEMP 98.1; O2SAT 100
== END 2017-10-19 21:36 | disposition home or self-care (01) ==
LOC: ED 18:25
DX: M25.562 Pain in left knee (principal); S83.8X2A Sprain of other specified parts of left knee, initial encounter; X58.XXXA Exposure to other specified factors, initial encounter; Y93.67 Activity, basketball
CPT/HCPCS: 80053; 85025; 96372; 99285; J1885

== ENCOUNTER 2017-11-24 15:40 | Emergency (ER) | payer MEDICAID ==
[2017-11-24 16:01] VITALS: BMI 31.8
[2017-11-24 16:02] VITALS: TEMP 98.8
--- NOTE | 2017-11-24 16:16 | ED PDOC ---
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 He denies any injury or trauma, although the previous notes from October 19 report an injury playing basketball. He continued to have pain and swelling. He is able to weight-bear. He does have full range of motion. He is here visiting from [place]. Past Medical History - Infectious Disease Hx of Infectious Diseases: None - Tetanus Immunization Tetanus Immunization: Unknown - Cardiac Hx Cardiac Disorders: No - Pulmonary Hx Respiratory Disorders: No - Neurological Hx Neurological Disorder: No - HEENT Hx HEENT Disorder: No - Renal Hx Renal Disorder: No - Endocrine/Metabolic Hx Endocrine Disorders: No - Hematological/Oncological Hx Blood Disorders: No - Integumentary Hx Dermatological Disorder: No - Musculoskeletal/Rheumatological Hx Musculoskeletal Disorders: No - Gastrointestinal Hx Gastrointestinal Disorders: No - Genitourinary/Gynecological Hx Genitourinary Disorders: No Hx Sexually Transmitted Diseases: No - Psychiatric Hx Psychophysiologic Disorder: Yes Hx Anxiety: Yes Hx Schizophrenia: Yes Hx Substance Use: No - Surgical History Hx Orthopedic Surgery: Yes (left ankle) - Anesthesia Hx Anesthesia: No Hx Anesthesia Reactions: No Hx Malignant Hyperthermia: No Family/Social History - Physician Review Nursing Documentation Reviewed: Yes Family/Social History: Unknown Family HX Smoking Status: Never Smoked Hx Alcohol Use: No Hx Substance Use: No Allergies/Home Meds Allergies/Adverse Reactions: Allergies No Known Allergies Allergy (Verified 11/24/17 16:01) Home Medications: Home Meds Medication Instructions Recorded Confirmed Sertraline [Zoloft] 0 mg PO DAILY 11/24/17 11/24/17 Review of Systems - Physician Review All systems were reviewed & negative as marked: Yes - Review of Systems Musculoskeletal: Joint Swelling Physical Exam Vital Signs Temp Pulse Resp BP Pulse Ox 11/24/17 16:01 98.8 F 75 18 116/74 96 Temperature: Afebrile Blood Pressure: Normal Pulse: Regular Respiratory Rate: Normal Appearance: Positive for: Well-Appearing, Non-Toxic, Comfortable Pain Distress: None Mental Status: Positive for: other (awake alert and cooperative and in no distress) - Systems Exam Lower Extremity: Present: NORMAL PULSES, Normal ROM, Tenderness, Swelling, Neurovascularly Intact, Other (Left knee effusion with some tenderness along the medial joint line. Full range of motion. No skin changes. No warmth. No calf tenderness. Able to weight-bear.). No: Normal Inspection, Edema, CALF TENDERNESS, Cyanosis, Tay's Sign, Erythema, Deformity Skin: Present: Warm, Dry, Normal Color. No: Rashes Medical Decision Making - RAD Interpretation Radiology Orders: 11/24/17 16:12 KNEE LEFT 2 VIEWS (AP & LAT) [RAD] Stat Knee two views shows no fracture or dislocation. There is a knee effusion. Treasury Specialist: ED Physician Disposition/Present on Arrival - Present on Arrival Any Indicators Present on Arrival: No History of DVT/PE: No History of Uncontrolled Diabetes: No Urinary Catheter: No History of Decub. Ulcer: No History Surgical Site Infection Following: None - Disposition Have Diagnosis and Disposition been Completed?: Yes Diagnosis: Knee effusion, Knee sprain Disposition: HOME/ ROUTINE Disposition Time: 17:01 Patient Plan: Discharge Patient Problems: Current Active Problems Problem Status Onset Knee effusion Acute Knee sprain Acute Condition: GOOD Discharge Instructions (ExitCare): Knee Sprain (DC) Additional Instructions: Rest moist heat and elevation. Tylenol or Advil as directed on bottle as needed. Follow-up with the orthopedist or in the clinic. Follow up in ER as needed. Referrals: William Oquendo, [Primary Care Provider] - Follow up with primary [facility] [place] [facility] [place] - Follow up with primary Forms: [employer] (Ukrainian)
--- NOTE | 2017-11-24 16:44 | RAD ---
PROCEDURE: Left Knee Radiographs. HISTORY: Pain. COMPARISON: None. FINDINGS: BONES: No evidence of acute displaced fracture nor dislocation. JOINTS: Joint spaces relatively preserved. No significant osteoarthritis. JOINT EFFUSION: Moderately large joint effusion OTHER FINDINGS: None. IMPRESSION: No evidence of acute displaced fracture nor dislocation. Moderately large joint effusion. If symptoms persist or occult fracture suspected clinically recommend repeat radiographs in 5-10 days as most fractures should become radiographically evident in this timeframe.
[2017-11-24 17:10] VITALS: BP 122/78; PULSE 78; RESP 16; O2SAT 99
== END 2017-11-24 17:09 | disposition home or self-care (01) ==
LOC: ED 15:40
DX: S83.92XA Sprain of unspecified site of left knee, initial encounter (principal); X58.XXXA Exposure to other specified factors, initial encounter; Y92.9 Unspecified place or not applicable; M25.462 Effusion, left knee